=== PATIENT | male | born 1965 | race Caucasian/White ===

== ENCOUNTER 2017-03-26 05:38 | Inpatient (IN) | payer BC, OTHER ==
[~2017-03-26] VITALS: Ht 175.3 cm; Wt 81.6 kg
--- NOTE | ~2017-03-26 | EKG ---
[address] [address] ELECTROCARDIOGRAM REPORT Name: AMBROCIO MANN Room #: 150-9 [facility].#: [id number] Admission: 03/26/17 Attend Phys: Kenney Brown MD Discharge: Date of : 69 Report #: [id number] THIS REPORT FOR: //name// [facility] Test Date: 2017-03-26 Test Time: 07:18:05 Pat Name: AMBROCIO MANN Department: Room: 150 9 Gender: M Drop Clipper: ZOILA : 1965 Requested By: Kenney Brown Order Number: [id number] MD: Joon Kwan Measurements Intervals [place] Rate: 76 P: 30 NH: 120 QRS: 58 QRSD: 104 T: 26 QT: 372 QTc: 419 Interpretive Statements Sinus rhythm Normal tracing No previous ECG available for comparison Electronically Signed On 03-26-2017 9:02:12 DIAL MOUNTER by Joon Kwan [email or web address] <ELECTRONICALLY SIGNED> By: Joon Kwan MD, [facility] 03/26/17901 7 7 Joon Kwan MD, FACC /EPI
--- NOTE | ~2017-03-26 | S ---
[facility] [place] [address] SURGICAL PATH RPT PROCEDURE Name: ANDREW MANN Room #: 406-P [facility] Jace Benjamin#: [id number] Admission: 03/26/17 Date of : 69 Discharge: Report #: [id number] Path Case #: [id number] PATHOLOGY REPORT COLLECTION DATE: 03/26/2017 RECEIVED DATE: 03/26/2017 SUBMITTING PHYS: Dr. Kenney Brown OTHER PHYS: Dr. Gonsalo Akhtar SPECIMEN(S) RECEIVED: A.Gallbladder * * * * * * * * * * * * FINAL DIAGNOSIS: Gallbladder, cholecystectomy: - Mild chronic cholecystitis. - Cholelithiasis. PATHOLOGIST: Myesha Newby M.D. REPORT ELECTRONICALLY SIGNED BY: Myesha Newby M.D. DATE/TIME: 03/27/2017 12:08 * * * * * * * * * * * * GROSS PATHOLOGY: Received in formalin labeled "Anderw Mann gallbladder," is a 11.5 x 5.2 x 1.0 cm, previously opened and fragmented gallbladder with pink-aquino smooth serosal surfaces. Opening the gallbladder reveals pink-aquino trabeculated mucosa and an average wall thickness of 0.2 cm. Calculi are present within the container: multiple fragmented multifaceted yellow-aquino roughened calculi which measure in aggregate 5.6 x 3.7 x 1.2 cm and range from 0.1-1.7 cm in greatest dimension. No masses are noted grossly. Diabetes Educator sections from the body and fundus are submitted along with the proximal margin in cassette A1. ([facility]; 03/26/2017) CLINICAL HISTORY: Cholelithiasis, cholecystitis. INITIAL CPT CODE(S): A; 32864 Professional services performed by [facility] at [facility] [address] , [place] [address] [facility] [address] [place] [address] SURGICAL PATH RPT PROCEDURE Name: ANDREW MANN Room #: 406-P [facility] aJce Benjamin#: [id number] Admission: 03/26/17 Date of : 69 Discharge: Report #: [id number] Path Case #: [id number] Technical services performed by [facility] at [address] [place] [address], [facility] [address] [place] [address]. [facility] [address] [place] [address] PHONE: [phone] DIRECTOR: Curt Brown M.D. * * * END OF REPORT * * *
--- NOTE | ~2017-03-26 | O ---
[facility] [place] [address] [address] OPERATIVE REPORT Name: AMBROCIO MANN Room #: 406-P [facility] IN M.R.#: [id number] Admission: 03/27/17 Attend Phys: Kenney Brown MD Discharge: 03/28/17 Date of : 69 Report #: [id number] THIS REPORT FOR: //name// CC: Kenney Brenner DATE OF SERVICE: 03/26/2017 PREOPERATIVE DIAGNOSIS: Cholecystitis with cholelithiasis. POSTOPERATIVE DIAGNOSES: 1. Complicated cholecystitis with cholelithiasis with hydropic gallbladder. 2. Common bile duct stone on operative cholangiogram. PROCEDURES PERFORMED: Laparoscopic cholecystectomy with intraoperative cholangiogram. ANESTHESIA: General anesthesia. COMPLICATIONS: None. ESTIMATED BLOOD LOSS: 10 mL. SURGEON: Kenney Brown M.D. DESCRIPTION OF PROCEDURE: With the patient under general anesthesia, abdomen was prepped and draped in sterile fashion. Timeout was performed. The patient did receive IV antibiotics. A 0.25% Marcaine was used to anesthetize the skin underneath the umbilicus. A 2 cm curvilinear incision was made infraumbilically. Fascia was identified, grasped with hemostat, 0 Vicryl suture placed on the fascia for retraction. Veress needle was then placed through the peritoneum. Abdominal cavity was insufflated with CO2. Pneumoperitoneum was established without difficulty. Two 5 mm trocars were placed in right upper quadrant, another 5 mm trocar placed in right epigastrium. Gallbladder was lifted over the liver. The gallbladder did have thickened appearance. The proximal part of the gallbladder was also very torturous and the gallbladder is fairly distended. The proximal gallbladder is tortuous and markedly elongated consistent with obstructive process in the gallbladder. The peritoneum over the cystic duct was then dissected free. There was some fatty tissue over the area of the cystic duct. There appeared to be a stone at the proximal gallbladder. Using a peanut dissector, the cystic duct was isolated. The cystic duct is noted to be dilated approximately twice the size of normal. A clip was able to be placed across the cystic duct, gallbladder junction, opening was made in the cystic duct. The bile that came out is somewhat sludgy looking. I did not see any stone in the proximal part of the cystic duct. The bile did appear to be [address] [address] OPERATIVE REPORT Name: AMBROCIO MANN Room #: 406-P [facility] IN M.R.#: [id number] Admission: 03/27/17 Attend Phys: Kenney Brown MD Discharge: 03/28/17 Date of : 69 Report #: [id number] under slight pressure. Cholangiogram catheter was inserted, fluoroscopic cholangiogram was obtained. Common bile duct filled out well. There were several filling defects in the common duct. There was small amount of contrast flow into the duodenum. The common bile duct is not dilated. The stones are faceted looking and measured approximately 5-6 mm. Cholangiogram catheter was then removed. A clip was placed across the cystic duct. The cystic duct was then divided and just proximal to the clip, an Endoloop of 0 PDS was placed across the cystic duct to secure it further. The patient will require ERCP for common bile duct stone retrieval with GI. At the end of procedure, consultation was obtained with Dr. Root. The cystic artery was then isolated, clipped x 2 proximally and 1 distally and then divided. Gallbladder was freed from the liver bed. A small opening was made in the gallbladder and the fluid that came out of the gallbladder is clearish looking consistent with hydropic gallbladder. Gallbladder was free. The gallbladder was placed in specimen bag and then retrieved through the infraumbilical port. In order to get the gallbladder out, I did enlarge the incision and the fascia. This was carefully performed by having the bag come through and then the wall opened up under a clamp using cautery. Part of the gallbladder was then brought out and the gallbladder was opened up and the stones were extracted. After several stones were removed, the gallbladder did come out through the fascia defect without difficulty. Gallbladder was opened off the field. There were multiple stones still left in the gallbladder. Some of these are larger, measuring a little over centimeter. There was a stone in the proximal gallbladder obstructing it. Liver bed was checked, hemostasis obtained. Irrigation was performed and then aspirated out. Trocars removed. CO2 was evacuated as much as possible. The fascial defect was then closed with [id number] 0 Vicryl at the infraumbilical area and a single interrupted 0 Vicryl. Skin was irrigated. Skin was closed with 5-0 PDS. Steri-Strip, Band-Aids applied. The patient tolerated the procedure well and was taken to recovery room. Finding of common bile duct stone was discussed with the patient's . Planned ERCP was discussed. <ELECTRONICALLY SIGNED> By: Kenney Brown MD 04/02/17 1439 [id number] 0038 Kenney Brown MD /nt
--- NOTE | ~2017-03-26 | P ---
[facility] [place] [address] PROCEDURE REPORT Name: AMBROCIO MANN Room #: 406-P [facility] IN M.R.#: [id number] Admission: 03/27/17 Attend Phys: Kenney Brown MD Discharge: Date of : 69 Report #: [id number] THIS REPORT FOR: //name// CC: Kenney Akhtar MD DATE OF SERVICE: 03/27/2017 BRIEF HISTORY: The patient is a 52-year-old male who underwent laparoscopic cholecystectomy yesterday and was found to have evidence of multiple stones in the common bile duct. PREOPERATIVE DIAGNOSIS: Choledocholithiasis. POSTOPERATIVE DIAGNOSIS: Choledocholithiasis. MEDICATIONS: Intubation and general anesthesia. SPECIMEN: Multiple stones removed from the duct, but left in the duodenum. ESTIMATED BLOOD LOSS: None. PROCEDURE: ERCP with endoscopic sphincterotomy and stone extraction. FINDINGS: Prior to intubation and general anesthesia, the procedure of ERCP and sphincterotomy, stone extraction was discussed with the patient and his as well as potential risks, benefits and complications including perforation, bleeding, infection. They indicate they understand and desire that we proceed. DESCRIPTION OF PROCEDURE: The patient was taken to the invasive radiology suite and was induced with general anesthesia, intubated, and placed in the prone position. Subsequently, a Fuji side-viewing endoscope was inserted in the cervical esophagus and advanced through the esophagus without difficulty. It was advanced into the stomach. It was guided through the stomach, across the pylorus into the duodenum. The duodenal papilla was identified. Dark bile was intermittently coming from the papilla. We cannulated and initially thought we had deep cannulation, but we had difficulty passing the wire. After readjustment, we obtained deep cannulation with the wire. The wire was advanced into the intrahepatic ductal system. We then injected contrast and there were noted to be multiple filling defects in the distal duct. The common bile duct and common hepatic duct and intrahepatics were not enlarged. They were no more than about 5-6 mm. We then completed a sphincterotomy without difficulty. Subsequently, we guided the balloon catheter over the guidewire and in spite of multiple attempts, we could not get the balloon catheter to pass beyond the [facility] [address] [place] [address] PROCEDURE REPORT Name: AMBROCIO MANN Room #: 406-P [facility] [place] ..#: [id number] Admission: 03/27/17 Attend Phys: Kenney Brown MD Discharge: Date of : 69 Report #: [id number] stones. We then exchanged the balloon catheter for 1.5 basket, which was passed alongside the guidewire and it passed easily beyond the stones into the upper common hepatic duct. The basket was deployed and multiple passes were made. A total of 3 stones were extracted. These were white to yellowish stones. They were irregular in shape. In addition, once the stones were removed, lots of debris and sludge passed through the sphincterotomy. We then exchanged back for the balloon catheter and passed it into the common hepatic duct and engaged the balloon and slowly milo back while filling the biliary tree. No additional filling defects were noted. It is also noted that he had a relatively low takeoff of his common hepatic duct and this may have been the problem with our initial cannulation. The balloon catheter was brought back to the sphincterotomy site. Injection did not reveal any filling defects. The balloon was let down and pulled out and multiple films did not reveal evidence of retained stones. Scope was withdrawn. The patient tolerated the procedure well. DISPOSITION: The sphincterotomy was completed without difficulty. Stones extracted as described. The common duct appears to be clear at this point in time. We will start on clear liquids later today. Likely, discharge later today or tomorrow. <ELECTRONICALLY SIGNED> By: Don Matos MD 03/28/17 1158 1342 2248 Don Matos MD /nt
[~2017-03-26 05:38] MED LIST: MUCINEX D TABL1 EACH OR; PROTONIX 20 MG20 M1 PO; SINGULAIR 10 MG10 M1 PO; VENTOLIN HFA 1818 GM INH
[2017-03-26 07:05] VITALS: BP 112/76
[2017-03-26 12:12] LABS: ALBUMIN 3.5 g/dL (3.4-5.0); DIRECT BILIRUBIN 0.1 mg/dL (<0.1-0.3); TOTAL BILIRUBIN 0.4 mg/dL (<0.1-1.0); TOTAL PROTEIN 6.5 g/dL (6.4-8.2)
[2017-03-26 15:25] VITALS: BP 134/85
[2017-03-26 15:43] VITALS: BP 134/83
[2017-03-26 16:44] VITALS: BP 126/80
[2017-03-26 20:00] VITALS: BP 125/78
[2017-03-27] VITALS: BP 133/75
[2017-03-27 03:53] LABS: HEMATOCRIT 42.3 % (42.0-52.0); HEMOGLOBIN 14.5 gm/dL (14.0-18.0); MCH 28.9 pg (26.0-34.0); MCHC 34.3 g/dL (28.0-37.0); MCV 84.2 fL (80.0-100.0); RBC 5.03 mil/uL (4.50-6.00); RDW 12.7 % (10.5-14.5); WBC 12.5 thou/uL (4.0-11.0)
[2017-03-27 04:00] VITALS: BP 144/75
[2017-03-27 04:09] LABS: ALBUMIN 3.3 g/dL (3.4-5.0); CALCIUM 8.6 mg/dL (8.5-10.1); POTASSIUM 4.2 mmol/L (3.5-5.1); TOTAL BILIRUBIN 0.5 mg/dL (<0.1-1.0); TOTAL PROTEIN 6.8 g/dL (6.4-8.2)
[2017-03-27 07:39] VITALS: BP 126/80
[2017-03-27 20:41] VITALS: BP 156/96
[2017-03-28 04:09] VITALS: BP 113/73
[2017-03-28 06:21] LABS: ALBUMIN 3.3 g/dL (3.4-5.0); DIRECT BILIRUBIN 0.1 mg/dL (<0.1-0.3); TOTAL BILIRUBIN 0.7 mg/dL (<0.1-1.0); TOTAL PROTEIN 6.7 g/dL (6.4-8.2)
[2017-03-28 08:39] VITALS: BP 129/77
[2017-03-28] MEDS ORDERED: NORCO 5-325 TA1 EACH PO (12:47)
[2017-03-28 12:56] VITALS: BP 129/77
== END 2017-03-28 14:08 | disposition home or self-care (01) | DRG 419 ==
LOC: TBA 05:38 → OR 05:38 → 4N 11:41 → OR 11:41 → 4N 03-27 13:50
PROVIDERS: Nurse Practitioner; Surgery
DX: K80.10 Calculus of gallbladder with chronic cholecystitis without obstruction (principal); Z88.5 Allergy status to narcotic agent; Z88.6 Allergy status to analgesic agent
CPT/HCPCS: 10790; 50010; 50101; 50411; 50555; 50558; 51297; 51489; 51687; 53307; 53310; 53312; 55245; 55317; 56462; 56525; 56526; 62110; 62900; 70005

== ENCOUNTER → 2020-02-21 | Outpatient (CLI) | payer OTHER ==
[~2020-02-21] MED LIST changes: +NORCO 5-325 TA1 EACH PO
== END ==
LOC: LAB 09:24
PROVIDERS: ATTEND Family Medicine
DX: Z20.828 Contact with and (suspected) exposure to other viral communicable diseases (principal)